=== PATIENT | female | born 1970 | race Caucasian/White ===

== ENCOUNTER 2018-05-23 10:26 | Emergency (ER) | payer MEDICAID ==
[~2018-05-23] VITALS: Ht 162.6 cm; Wt 72.7 kg
[2018-05-23 10:36] VITALS: BP 123/90
== END 2018-05-23 11:34 | disposition home or self-care (01) ==
LOC: ED 11:15
DX: B34.9 Viral infection, unspecified (principal); Z76.0 Encounter for issue of repeat prescription; K21.9 Gastro-esophageal reflux disease without esophagitis; Z59.0 Homelessness
CPT/HCPCS: 71046; 99283